=== PATIENT | male | born 1965 | race Caucasian/White ===

== ENCOUNTER 2017-07-24 10:00 | Day surgery (SDC) | payer OTHER ==
--- NOTE | 2017-07-20 15:33 | HP ---
PREOPERATIVE HISTORY AND PHYSICAL: DATE OF ADMISSION/SURGERY: 07/24/17 DATE OF OFFICE VISIT: 07/20/17 ATTENDING SURGEON: Dr. Ramana Jung * (DICTATED BY MIKE WESTBROOK) PROCEDURE: Right knee arthroscopy, partial meniscectomy. CHIEF COMPLAINT: Right knee pain. HISTORY OF PRESENT ILLNESS: Uvaldo is a 52-year-old male, who presents to the clinic for right knee pain due to a work-related injury. He had catching and locking. He failed conservative measures and has therefore agreed to undergo a right knee arthroscopy, partial meniscectomy with Dr. Jung, on 07/24/17. PAST MEDICAL HISTORY: Lyme disease. PAST SURGICAL HISTORY: Right shoulder, right knee ACL, left knee meniscus surgery, left shoulder esophageal cyst removal, and left knee arthroscopy. The patient denies prior complications to anesthesia. MEDICATIONS: No active medications. ALLERGIES: NSAIDs. FAMILY HISTORY: Positive for heart disease and cancer, thyroid disease, diabetes. Denies family history of DVT or PE. SOCIAL HISTORY: He lives alone. 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 He has a prior history of smoking for 10 to 15 years, one pack per day, he quit over 20 years ago. He rarely drinks alcohol. He denies illegal drug use. REVIEW OF SYSTEMS: A 14-point review of systems was reviewed with the patient. Positive for current complaint, otherwise negative. He denies fevers or chills. Denies numbness or tingling. Denies chest pain or shortness of breath. Denies history of DVT or PE. Denies history of bleeding disorder. PHYSICAL EXAMINATION GENERAL: A 52-year-old, well-developed, well-nourished male, in no acute distress. Alert and oriented x3. Appropriate mood and affect. VITAL SIGNS: Height 68, weight 202, pulse 66, blood pressure 140/90, respiratory rate 16, temperature 96.3, BMI 30.7. HEENT: Normocephalic, atraumatic. PERRLA. Throat: Clear. NECK: Supple. PULMONARY: Lungs are clear to auscultation bilaterally. No wheezing, rhonchi, or rales. CARDIO: Regular rate and rhythm. S1, S2. No murmurs, gallops, or rubs. No edema. ABDOMEN: Positive bowel sounds, soft, nontender. MUSCULOSKELETAL: Right lower extremity, skin is intact. No warmth or erythema. Range of motion 0 to 130. Pain with knee flexion. Positive Crhista. Tender over the medial joint line. Stable Matty. Stable with varus and valgus stress. Calves soft, nontender, +2 PT pulses. Sensation intact to light touch distally. NEUROLOGIC: Alert and oriented x3. Cranial nerves grossly intact. Sensation is intact to light touch. DIAGNOSTIC STUDIES: MRI reveals a medial meniscus tear and mild osteoarthritis and Mcclendon cyst. IMPRESSION: Right knee medial meniscus tear. PLAN: The patient is scheduled to undergo a right knee arthroscopy, partial meniscectomy with Dr. Jung, on 07/24/17. He will follow up in 10 to 14 days postop for followup and suture removal. Percocet will be sent to patient's pharmacy for postop pain management. MIKE WESTBROOK [id number]/[facility] #: [id number] [facility]ITALJin
[~2017-07-24 10:00] MED LIST: Buffered Lidocaine 0.9% SYRIN* 5 ML/SYR SYRINGE INTRADERM ONE; Famotidine IV* 10 MG/ML 2 ML (20 mg) ONE
[2017-07-24] MEDS ORDERED: ceFAZolin 2 GM PREMIX (*) 2 GM/50 ML BAG IVPB ONE (10:27)
[2017-07-24] MEDS ORDERED: Ondansetron INJ* 2 MG/ML VIAL IV PRN (12:17)
[2017-07-24] MEDS ORDERED: PROCHLORPERAZINE INJ 5 MG/ML 2 ML VIAL IV PRN (12:17)
[2017-07-24] MEDS ORDERED: Scopolamine 1.5 mg* PATCH TRANSDERM PRN (12:17)
[2017-07-24] MEDS ORDERED: DiMENhydriNATE IV* 50 MG/ML VIAL IV PUSH PRN (12:17)
[2017-07-24] MEDS ORDERED: Acetaminophen TAB* 325 MG PO PRN (12:17)
[2017-07-24] MEDS ORDERED: Bupivacaine 0.25% SDV* 30 ML ONE (12:20)
[2017-07-24] MEDS ORDERED: Lidocaine 1% MPF wEPI 200,000* 30 ML SDV ONE (12:53)
[2017-07-24] MEDS ORDERED: methylPREDNISolone ACETATE 80* 80 MG/ML 1 ML VIAL ONE (13:01)
[2017-07-24] MEDS ORDERED: Midazolam* 1 MG/ML 2 ML VIAL (2 MG) ONE ×2 (13:02→13:22)
[2017-07-24] MEDS ORDERED: Ondansetron INJ* 2 MG/ML VIAL ONE (13:19)
[2017-07-24] MEDS ORDERED: Ketorolac INJ* 30 MG/ML 1 ML VIAL ONE (13:19)
[2017-07-24] MEDS ORDERED: Propofol* 10 MG/ML 20 ML BTL IV PUSH ONE (13:19)
[2017-07-24] MEDS ORDERED: Lidocaine 2% PF * 5 ML VIAL ONE (13:19)
[2017-07-24] MEDS ORDERED: Dexamethasone IV* 4 MG/ML 1 ML (4 MG) ONE (13:19)
[2017-07-24] MEDS ORDERED: fentaNYL* 50 MCG/ML 2 ML VIAL (100 MCG VIAL) ONE ×2 (13:20→13:22)
[2017-07-24] MEDS ORDERED: diPHENhydraMINE IV* 50 MG/ML 1 ml VIAL (BENADRYL) ONE (13:44)
[2017-07-24] MEDS ORDERED: Labetalol IV* 5 MG/ML 20 ML VIAL ONE (13:44)
[2017-07-24 15:18] VITALS: BP 126/87
--- NOTE | 2017-07-25 03:39 | OP ---
CC: PCP, Nahed Jaeger MD * DATE OF OPERATION: 07/24/17 - [facility] DATE OF : 67 SURGEON: Ramana Jung MD. FINANCIAL SERVICES PROFESSIONAL: MIKE Panda. An junior assistant manager was needed for the entirety of the case to help with positioning, retraction and utilized throughout all portions of case. ANESTHESIOLOGIST: Dr. Bender. ANESTHESIA: General. PRE-OP DIAGNOSIS: Right knee medial meniscus tear. POST-OP DIAGNOSIS: Right knee medial and lateral meniscus tears with chondrosis of the medial femoral condyle and the trochlea, small area of chondrosis of the patella as well as plica. OPERATIVE PROCEDURES: 1. Right knee arthroscopy with partial medial and lateral meniscectomy, plica excision, and chondroplasty of the medial femoral condyle, trochlea, and patella. 2. Injection of 80 mg of Depo-Medrol intraarticularly. COMPLICATIONS: None. ESTIMATED BLOOD LOSS: Minimal. INDICATIONS: Uvaldo Bills is a 52-year-old male who sustained a work-related injury to his right knee and had a meniscus tear. He has failed conservative management and elected to proceed with partial meniscectomy. Risks and benefits were discussed at length including but not limited to bleeding, infection, damage to nerves, vessels, surrounding structures, wound nonhealing, persistent pain, need for surgery, scarring, stiffness, incomplete relief of symptoms, risk of anesthesia, and risk of DVT. He has elected to proceed. DESCRIPTION OF PROCEDURE: The patient was greeted in the preoperative area by the attending surgeon. The correct extremity was marked and the consent was confirmed. The patient was then brought back to the operating suite where he was placed in the supine position on the operating table. He then underwent general anesthesia with LMA intubation. An unsterile tourniquet was placed high on the proximal thigh, lateral post was positioned. The right knee was prepped and draped in the usual sterile fashion beginning with chlorhexidine soap, scrub, and alcohol wipe and a final prep with ChloraPrep. After appropriate surgical pause indicating site, side, procedure, administration of antibiotics, the knee was intra-articularly injected with 1% lidocaine with epi. The lateral portal was made using an 11 blade. Scope was introduced into the joint. Joint was examined. There were areas of grade 0 changes to the patella and a small area superiorly of grade 2 changes with unstable flaps. The trochlea proximally had minimal wear, but in the center he had areas of grade 3 changes with unstable flaps. The medial and lateral gutters were intact without any loose bodies. There is abundant synovitis and plica anteriorly, which was very inflamed. There was abundant synovitic tissue. The knee was placed at 90 degrees. The anteromedial portal was made after localization with an 18-gauge needle. The shaver was used to debride back the synovitis and plica anteriorly and medially. The electrocautery device was used to maintain hemostasis as the tissue was very friable. There was a small area of grade 4 changes that was about 1 mm x 2 mm surrounded by a small dime-sized area of grade 2 and 3 changes along the medial femoral condyle that was separate from a second area that was in the weightbearing surface that was about 1.5 cm x 1.5 cm that had grade 2 changes with unstable flaps. This was debrided back using a shaver. The medial plateau had grade 1 changes. The medial meniscus had unstable tearing posteriorly in the white-white zone. This was debrided back using arthroscopic biters and imelda. The meniscus quality was poor. The ACL and PCL were intact. The knee was placed in a figure-of- 4 position. The root of the lateral meniscus was intact as well as the posterior lateral aspect, but the periphery had a radial split tear in white-white zone. These were debrided back using a shaver and the biter. Once the meniscectomy was complete, attention was directed to the chondrosis of the trochlea as well as medial femoral condyle. A small chondroplasty was done. The plica was then further released, so that the joint was fully visualized. The joint was then thoroughly irrigated and lavaged once hemostasis was obtained, removed any loose debris. Final images were obtained and the portals were then irrigated and closed with 3-0 nylon. The knee was then intra-articularly injected with 80 mg of Depo with 30 cc of 0.25% Marcaine. Sterile dressings were applied. He was woken from anesthesia, a Cryo/Cuff was placed and he was brought to the PACU in good condition. POSTOPERATIVE PLAN: He will be weightbearing as tolerated, but on crutches for the first 3 to 5 days. He will be discharged on pain medication. I will see the patient back in 10 to 14 days. [id number]/[facility] #: [id number] MTDD
[2017-07-27] MEDS ORDERED: Scopolamine PATCH Remove* 1 NOTE MISC PATCH OFF ONE (12:17)
== END 2017-07-24 15:15 | disposition home or self-care (01) ==
LOC: OREAST 10:00
PROVIDERS: ATTEND Orthopaedic Surgery
DX: S83.241A Other tear of medial meniscus, current injury, right knee, initial encounter (principal); S83.281A Other tear of lateral meniscus, current injury, right knee, initial encounter; X58.XXXA Exposure to other specified factors, initial encounter; Y93.9 Activity, unspecified; Y92.149 Unspecified place in prison as the place of occurrence of the external cause; Y99.0 Civilian activity done for income or pay; Z87.891 Personal history of nicotine dependence; I10 Essential (primary) hypertension; M25.461 Effusion, right knee; M25.561 Pain in right knee
CPT/HCPCS: J0690; J1040; J1100; J1200; J1885; J2001; J2250; J2405; J2704; J3010

== ENCOUNTER → 2018-04-04 13:19 | Day surgery (SDC) | payer BC, OTHER ==
[~2018-04-04 13:19] MED LIST changes: +Dexamethasone IV* 4 MG/ML 1 ML (4 MG) IV SLOW PU ONE; +Dexamethasone TAB* 4 MG ONE; +Dexamethasone TAB* 4 MG PO ONE; +DiMENhydriNATE IV* 50 MG/ML VIAL IV PUSH PRN; +Famotidine IV* 10 MG/ML 2 ML (20 mg) IV ONE; +HYDROmorphone INJ* 0.5 MG/0.5 ML SYRINGE IV PRN; +HYDROmorphone INJ* 0.5 MG/0.5 ML SYRINGE ONE; +KETAMINE HCL* 50 MG/ML 10 ML VIAL ONE; +Labetalol IV* 5 MG/ML 20 ML VIAL ONE; +Lidocaine 2% PF * 5 ML VIAL ONE; +Midazolam* 1 MG/ML 5 ML VIAL (5 MG) ONE; +Naloxone* 0.4 MG/ML 1 ML VIAL IV PRN; +Ondansetron ODT TAB* 4 MG ONE; +Ondansetron TAB* 4 MG PO ONE; +PROCHLORPERAZINE INJ 5 MG/ML 2 ML VIAL IV PRN; +PROCHLORPERAZINE INJ 5 MG/ML 2 ML VIAL ONE; +Propofol* 10 MG/ML 20 ML BTL IV PUSH ONE; +Ropivacaine* 2 MG/ML 20 ML VIAL (0.2%) ONE; +Scopolamine 1.5 mg* PATCH TRANSDERM ONE; +Scopolamine PATCH Remove* 1 NOTE MISC PATCH OFF ONE; +ceFAZolin 2 GM PREMIX (*) 2 GM/50 ML BAG IVPB ONE; +fentaNYL* 50 MCG/ML 2 ML VIAL (100 MCG VIAL) ONE; +hydrALAZINE IV* 20 MG/ML VIAL ONE; +oxyCODONE/Acetamin 5/325 MG* TAB ONE
[2018-04-04] MEDS: fentaNYL* 50 MCG/ML 2 ML VIAL (100 MCG VIAL) IV PRN ×4 (19:09→20:00)
[2018-04-04] MEDS: oxyCODONE/Acetamin 5/325 MG* TAB PO PRN ×2 (19:11→19:12)
[2018-04-04 20:20] VITALS: BP 166/97
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
--- NOTE | 2018-04-05 07:00 | RAD ---
INDICATION: Left clavicle operative reduction and internal fixation. COMPARISON: Comparison is made with a prior study from March 24, 2018. TECHNIQUE: 11.5 seconds of intermittent fluoroscopic guidance were provided and 4 spot films of the left clavicle were obtained in the operating room. FINDINGS: The films demonstrate operative reduction internal fixation of the previously noted comminuted fracture of the mid clavicle. There is a surgical metallic plate present along the superior aspect of the clavicle transfixed with multiple screws spanning the fracture fragments. IMPRESSION: INTRAOPERATIVE CONTROL FILMS. CPT II Codes: G9500
--- NOTE | 2018-04-05 07:31 | RAD ---
HISTORY: r/o pneumothorax COMPARISONS: None VIEWS: 1: frontal portable view of the chest at 6:54 PM FINDINGS: LINES AND TUBES: None. CARDIOMEDIASTINAL SILHOUETTE: The cardiomediastinal silhouette is normal for portable technique. PLEURA: The costophrenic angles are sharp. No pleural abnormalities are noted. There is no appreciable pneumothorax. LUNG PARENCHYMA: The lungs are clear. ABDOMEN: The upper abdomen is clear. There is no subphrenic gas. BONES AND SOFT TISSUES: The patient is status post left clavicle internal fixation. IMPRESSION: NO ACTIVE CARDIOPULMONARY DISEASE.
== END | disposition home or self-care (01) ==
LOC: OR 13:19
PROVIDERS: ATTEND Orthopaedic Surgery
DX: S42.022A Displaced fracture of shaft of left clavicle, initial encounter for closed fracture (principal); V19.88XA Pedal cyclist (driver) (passenger) injured in other specified transport accidents, initial encounter; Y93.55 Activity, bike riding; Y92.89 Other specified places as the place of occurrence of the external cause
CPT/HCPCS: 71045; A9270-GY; C1713; C1776; J0360; J0690; J0780; J1170; J2250; J2704; J2795; J3010; J8540